=== PATIENT | female | born 1960 | race Caucasian/White ===

== ENCOUNTER 2017-03-26 21:19 | Inpatient (IN) | payer OTHER ==
[~2017-03-26 21:19] MED LIST: ISOVUE-370 76%-LOCM 1 ML ONE
--- NOTE | 2017-03-27 01:35 | PDOC.EVN ---
Event Note - Event Note Event Note: [id number] H&P Dictated 1. Dyspnea 2. Afib 3. H/O HTN 4. Acute bronchitis plan: see orders
[2017-03-27] MEDS ORDERED: Acetaminophen 325 MG TAB PO PRN (02:40)
[2017-03-27] MEDS ORDERED: Ondansetron HCl/PF 4 MG/2 ML Vial IVP PRN (02:40)
[2017-03-27] MEDS ORDERED: Ondansetron ODT 4 MG TAB SL PRN (02:40)
[2017-03-27] MEDS ORDERED: cefTRIAXone\\ROCEPHIN 1 GM, Syringe 0.4 ML in Sterile Water 9.6 ML SLOW IVP SCH ×2 (03:00→08:00)
[2017-03-27 03:10] VITALS: BMI 48.2
[2017-03-27] MEDS ORDERED: Aspirin 325 MG TAB PO SCH ×2 (03:15→08:00)
[2017-03-27] MEDS ORDERED: Azithromycin 500 MG in Sodium Chloride 0.9% 250 ML 250 ML IVPB SCH (04:00)
[2017-03-27] MEDS: Nitroglycerin 2% Ointment 1 INCH/1 GM Packet TOP SCH ×2 (04:53→11:46)
[2017-03-27 05:17] LABS: #Lymphocytes 0.6 thou/uL (1.20-3.40); #Neutrophils 3.8 thou/uL (1.40-6.50); %Basophils 0.5 % (0.0-1.0); %Eosinophils 0.1 % (0.0-10.0); %Monocytes 0.4 % (0.0-10.0); Mean Platelet Volume 6.7 fL (7.4-10.4); Red Blood Cell (RBC) Count 4.11 mill/uL (4.20-5.40); White Blood Cell (WBC) Count 4.4 thou/uL (4.8-10.8)
[2017-03-27 05:41] LABS: Troponin I Less than 0.010 ng/mL (< 0.028)
[2017-03-27 05:52] LABS: Anion Gap 14 mmol/L (10-20); BUN (Urea Nitrogen) 20 mg/dL (9.8-20.1); Calc. Creatinine Clearance 117 mL/min (70-130); Calcium 9.5 mg/dL (7.8-10.44); Carbon Dioxide 20 mmol/L (22-29); Chloride 105 mmol/L (98-107); Cholesterol 148 mg/dl (< 200 Desired); Estimated GFR-MDRD 51; LDL Cholesterol, Calculated 95 mg/dL
[2017-03-27] MEDS ORDERED: FLU VACC QS2017-18 36 mo. & older 0.5 ML SYRINGE IM ONE (09:00)
--- NOTE | 2017-03-27 11:23 | HP ---
DATE OF ADMISSION: 03/26/2017 CHIEF COMPLAINT: Dyspnea. HISTORY OF PRESENT ILLNESS: Patient is a 57-year-old female with past medical history of hypertensio n, atrial fibrillation, obstructive sleep apnea, . The patient started having dyspnea for past 2 weeks, dyspnea worse with ambulation. The patient also complains of cough for the last few days ac companied by chest tightness. Chest pain is substernal, mild in intensity. No guarding, no rebound. Denies any radiation. Denies any dizziness, denies any nausea, denies any vomiting, denies any lig htheadedness. PAST MEDICAL HISTORY: As per HPI. PAST SURGICAL HISTORY: Appendectomy, hysterectomy. SOCIAL HISTORY: Denies smoking, denies alcohol, denies any drugs. FAMILY HISTORY: Denies any heart problems. REVIEW OF SYSTEMS: Constitutional: Denies any fever, denies any chills. Eyes: Denies any vision p roblems. Ears: Denies any hearing loss. Neck: Denies any neck pain. Cardiovascular System: Posi tive for chest pain. Respiratory system: Denies any cough, denies sputum production. Cranial Nerve System: Denies syncope, denies lightheadedness. Psychiatric: Denies anxiety. Integument: Denies any rash. All other review of systems are reviewed and are negative. PHYSICAL EXAMINATION: CONSTITUTIONAL/VITAL SIGNS: At the time of H&P performed, blood pressure is 120/70, pulse ox 92% on 2 liters, afebrile, respiration rate is 18. GENERAL: The patient appears comfortable. HEENT: Pupils equal, round, and reactive. Anterior nares patent. Nose normal. Ears normal. Teeth intact. Tongue is moist. NECK: Supple. No JVD. CARDIOVASCULAR: S1, S2 present. Regular rate and rhythm. No murmurs, no rubs, no gallops. RESPIRATORY SYSTEM: No wheezing, no rhonchi. Breath sound present bilaterally. GASTROINTESTINAL: Abdomen is soft, nontender, no guarding, no organomegaly, no masses felt. MUSCULOSKELETAL: No edema. CRANIAL NERVE SYSTEM: Awake, follows commands. Speech clear. Strength intact. PSYCHIATRIC: Mood is appropriate at this time. INTEGUMENT: No rashes seen. LABORATORY DATA: At the time of H&P performed, white count 8.1, hemoglobin 12.2, platelet count is 2 41. Sodium 137, potassium 3.8, chloride 105, CO2 of 19, BUN of 24, creatinine 1.31. EKG, no acute S T wave changes. ASSESSMENT AND PLAN: The patient is a 57-year-old female, 1. Dyspnea, etiology unclear. EKG, no acute ST changes seen. We will consult cardiology. We will check cardiac enzymes. We will check 2D echo and we will follow patient. D-dimer is negative. We w ill check bilateral to rule out any deep venous prophylaxis also. 2. History of hypertension. Monitor blood pressure. Continue home blood pressure medications. 3. History of atrial fibrillation. Monitor heart rate. Continue home medications. 4. Obstructive sleep apnea. Continue CPAP. 5. Acute bronchitis. Plan to start patient on p.o. Zithromax also. Case was discussed in detail with the patient.
--- NOTE | 2017-03-27 11:54 | CT ---
PRELIMINARY REPORT/[facility]/EMERGENCY AFTER HOURS PROCEDURE: EXAM: CT Angiography Chest With Intravenous Contrast CLINICAL HISTORY: 57 years old, female; Signs and symptoms; Shortness of breath; Patient HX: 57 y/o f is tx from [facility] with presentation of SOB x1 week. Pt reports that she has worsening dyspnea with exertion/ambulation and states that she has had chest tightness secondary to SOB. Pt reports that her o2 sat went down t o 81% ra at pmd visit today and also reports developing cough. Denies any other complaints. No HX of asthma. Negative flu result today at pmd's visit. TECHNIQUE: Axial computed tomographic angiography images of the chest with intravenous contrast using pulmonary embolism protocol. All CT scans at this facility use one or more dose reduction techniques, viz.: aut omated exposure control; ma/kV adjustment per patient size (including targeted exams where dose is ma tched to indication; i.e. head); or iterative reconstruction technique. CONTRAST: 60 mL of [id number] administered intravenously. COMPARISON: No relevant prior studies available. FINDINGS: Pulmonary arteries: No pulmonary embolism. Main pulmonary artery is enlarged (40 mm at the level of t he pulmonary artery bifurcation), compatible with pulmonary arterial hypertension. No pulmonary embol ism. Aorta: Mild atherosclerotic disease of the thoracic aorta, without aneurysm or dissection. Lungs: 7 mm noncalcified nodule within the periphery of the lateral basal segment right lower lobe (s eries 2, image 75). Mild upper lobe predominant centrilobular emphysema. Pleural space: Normal. No significant effusion. No pneumothorax. Heart: Mild atherosclerotic disease of the left main and left anterior descending coronary arteries. Mediastinum: Small-sized hiatal hernia. Bones/joints: No acute fracture. No dislocation. Soft tissues: Normal. Lymph nodes: Normal. Spleen: Splenic calcification, compatible with prior granulomatous disease. IMPRESSION: 1. No pulmonary embolism. 2. Main pulmonary artery is enlarged (40 mm at the level of the pulmonary artery bifurcation), compat ible with pulmonary arterial hypertension. 3. 7 mm noncalcified nodule within the periphery of the lateral basal segment right lower lobe (serie s 2, image 75). For low-risk patients recommend follow-up chest CT at 6-12 months. If unchanged consi zurdo an additional follow-up CT at 18-24 months. For high-risk patients (smoking history or other know n risk factors) initial follow-up chest CT at 6-12 months and if unchanged, 18-24 months. 4. Incidental/non-acute findings are described above. Thank you for allowing us to participate in the care of your patient. Dictated and Authenticated by: Henrry Martínez MD 03/27/2017 1:13 AM Central Time ([place] & [place]) FINAL REPORT EMERGENCY AFTER HOURS CT ANGIOGRAM THORAX WITH IV CONTRAST AND 3D RECONSTRUCTIONS: Date: 03/27/17 HISTORY: Shortness of breath for 1 week, worsening dyspnea with exertion. Chest tightness secondary to the debra rtness of breath. IMPRESSION: 1. No CT evidence of pulmonary embolus. Mild enlargement of the main pulmonary arteries which may be related to an element of pulmonary artery hypertension. 2. Vascular calcifications in the coronary arteries, as well as thoracic aorta, but thoracic aorta i s normal in caliber without evidence of an aortic dissection. 3. Pleural based nodule along the minor fissure on the right measuring approximately 7.0 mm. This ma y represent area of nodular pleural thickening. However, there is a parenchymal pulmonary nodule at t he right lateral costophrenic angle which measures approximately 9.0 mm. There is also an additional subcentimeter pulmonary nodule along the major fissure right lung base which measures 6.0 mm, which a gain may be related to nodular pleural thickening. However, given the more discrete pulmonary nodule measuring 8.0 mm at the right lung base, follow-up CT scan thorax examination in 6 months is recomme nded. 4. Evidence of prior granulomatous disease. Findings are in agreement with the preliminary report by Kevin. POS: [facility]
[2017-03-27 12:00] VITALS: BP 125/57; TEMP 97.9
[2017-03-27] MEDS ORDERED: Dronedarone HCl 400 MG TAB PO SCH ×4 (12:00→21:00)
--- NOTE | 2017-03-27 12:16 | CON ---
DATE OF CONSULTATION: 03/27/2017 HISTORY OF PRESENT ILLNESS: The patient is a 57-year-old woman, who presents for evaluation of dyspnea. The patient has a previous history of atrial fibrillation. She has been on chronic antiarrhythmic therapy. The patient was in usual state of health until a week ago, she started having increasing dyspnea. She reports having congestion. The patient also had a low -grade fever. She denies having any productive sputum. Her dyspnea progressed and she came to the emergency room for further evaluation. The patient also reports having chest discomfort,which she states as primarily when she takes a deep breath. The patient has no previous history of chest discomfort. The patient' s cardiac risk factor is hypertension. PAST MEDICAL HISTORY: 1. Atrial fibrillation. 2. Hypertension. 3. Sleep apnea. 4. Morbid obesity. PAST SURGICAL HISTORY: Appendectomy. SOCIAL HISTORY: Former smoker. ALLERGY: ZYRTEC. MEDICATIONS ON ADMISSION: Multaq 100 b.i.d., diltiazem 120 daily, and lisinopril/ hydrochlorothiazide 20/12.5 daily. FAMILY HISTORY: Positive family history of heart disease. REVIEW OF SYSTEMS: Noticeable for 10-point system otherwise unremarkable. No history of bright red blood per rectum, bruising, or bleeding. PHYSICAL EXAMINATION: GENERAL: This is an obese woman in no acute distress. VITAL SIGNS: Blood pressure shows 122/57. NECK: Full. LUNGS: Clear to auscultation. HEART: Regular rate and rhythm, normal S1 and S2. ABDOMEN: Distended. EXTREMITIES: Showed no edema. NEUROLOGIC: Nonfocal. VASCULAR: Radial pulses are 2+. SOCIAL HISTORY: She is a former smoker. LABORATORY RESULT: Sodium 135, potassium 4.0, chloride 105, bicarbonate 20, BUN 20, creatinine 1.1, glucose 160, troponin less than 0.01. White blood cell count 4.4, hemoglobin 12.3, hematocrit 37.0, platelets are 253. EKG reveals her to have normal sinus rhythm with a low voltage QRS. IMPRESSION: 1. Dyspnea of unknown etiology. 2. History atrial fibrillation. 3. Hypertension. 4. Diabetes mellitus. 5. Morbid obesity. This patient presents with dyspnea of unclear etiology. Her BNP level is elevated. She has a normal D-dimer. Chest x-ray is unremarkable. We will check the patient's echocardiogram. We will follow this patient with you through her hospitalization. JULIA
[2017-03-27] MEDS ORDERED: guaiFENesin ER 600 MG TAB PO PRN ×2 (12:27→12:33)
[2017-03-27] MEDS ORDERED: Loratadine 10 MG TAB PO PRN ×2 (12:27→12:34)
[2017-03-27] MEDS ORDERED: Naproxen 500 MG TAB PO PRN ×2 (12:27→12:34)
--- NOTE | 2017-03-27 15:29 | DIS ---
DATE OF ADMISSION: 03/26/2017 DATE OF DISCHARGE: 03/27/2017 DISCHARGE DIAGNOSES: 1. Acute bronchitis with dyspnea. 2. Morbid obesity. 3. Seasonal allergies. 4. History of atrial fibrillation with current sinus mechanism. 5. Hypertension, labile. 6. Obstructive sleep apnea. CONSULTATIONS: Dr. Mode Garcia with Cardiology Service. PERTINENT LABORATORY DATA: Creatinine ranged between 1.11 to 1.31 with estimated GFR ranging between 42 to 51, total cholesterol 148, triglycerides 57, HDL 42, LDL 95. Troponin I negative x2. CBC wit hin normal limits. X-RAY FINDINGS: 1. Portable chest x-ray dated 03/26/2017 showed no acute cardiopulmonary process. CT angiogram of t he chest dated 03/26/2017 showed no evidence for pulmonary embolus. Granulomatous changes. 2. Pulmonary nodules. Recommend CT chest follow up in 6 months. A 2D transthoracic echocardiogram dated 03/27/2017 showed ejection fraction of 60% to 65%. Mild diastolic dysfunction. Mild pulmonary hypertension. HOSPITAL COURSE: The patient was admitted to the telemetry unit after initially presenting with dysp vasiliy of unclear etiology. The patient underwent general evaluation including metabolic survey. Telem etry monitoring, EKG, and chest imaging with essentially negative findings. The patient was noted wi th of pulmonary nodular changes consistent with granulomatous disease with recommendations for CT of the chest in 6 months. The patient was given general pulmonary supportive measures with Zithromax fo r suspected acute bronchitis with overall improvement in symptomatology. No specific evidence to sug gest a cardiac etiology for presentation and patient remained clinically stable throughout the hospit al course. Telemetry monitoring showed a sinus mechanism without evidence of acute arrhythmia or dys rhythmia or atrial fibrillation. The patient overall clinically stable and ready for discharge 03/27. DISCHARGE MEDICATIONS: 1. Zithromax 500 mg 1 tab p.o. daily x5 days. 2. Prednisone 10 mg p.o. b.i.d. x2 days, followed by 10 mg p.o. daily x2 days, followed by 5 mg p.o. daily x2 days. 3. Enteric coated aspirin 81 mg 1 tab p.o. daily. 4. Diltiazem ER 120 mg 1 tab p.o. daily. 5. Multaq 400 mg p.o. b.i.d. 6. Mucinex ER 600 mg p.o. b.i.d. 7. Lisinopril/hydrochlorothiazide 20/12.5 mg 1 tab p.o. daily. 8. Claritin 10 mg 1 tab p.o. daily. 9. Naproxen 500 mg p.o. b.i.d. p.r.n. FOLLOWUP: The patient will follow up with her primary care provider, Dr. Lawton within 7 days of di terryrdonald. CONDITION ON DISCHARGE: Stable. ACTIVITY: Ad john. DIET: Heart healthy. CODE STATUS: FULL. DISPOSITION: Home 03/27/2017.
[2017-03-28] MEDS ORDERED: Lisinopril/Hydrochlorothiazide 20 mg/12.5 mg Tablet PO SCH (09:00)
[2017-03-28] MEDS ORDERED: Non-Formulary Item 1 EACH (Lisinopril/Hydrochlorothiazide [Lisinopril-Hctz 20-12.5 Mg Tab PO SCH (09:00)
[2017-03-28] MEDS ORDERED: Aspirin 81 mg Enteric Coated Tablet PO SCH ×2 (09:00)
== END 2017-03-27 13:58 | disposition home or self-care (01) | DRG 202 ==
LOC: ERS 21:19 → T4-A 23:29 → 2SE 03-27 04:05
PROVIDERS: ADMIT Internal Medicine; ATTEND Internal Medicine
DX: J20.9 Acute bronchitis, unspecified (principal); Z68.42 Body mass index [BMI] 45.0-49.9, adult; I10 Essential (primary) hypertension; E66.01 Morbid (severe) obesity due to excess calories; G47.33 Obstructive sleep apnea (adult) (pediatric); J30.2 Other seasonal allergic rhinitis; Z23 Encounter for immunization; Z87.891 Personal history of nicotine dependence; I48.91 Unspecified atrial fibrillation
CPT/HCPCS: 36415; 71275; 80048; 80061; 84484; 85025; 90471; 90682; 93005; 93306; 94760; A4216; G0008; J0456; J0696; J7050; Q2036

== ENCOUNTER 2017-09-12 08:29 | Outpatient (CLI) | payer OTHER ==
--- NOTE | 2017-09-12 10:46 | RAD ---
PA AND LATERAL VIEWS CHEST: HISTORY: Dyspnea. FINDINGS: Comparison is made with the exam of 03/26/17. The heart is enlarged. The lungs are expanded without focal areas of consolidation, pneumothorax, goldie pulmonary edema, or pleural effusions. There are mild degenerative changes in the spine. IMPRESSION: No acute process. POS: [facility]
== END 2017-09-12 08:30 | disposition home or self-care (01) ==
LOC: RAD 08:29
PROVIDERS: ATTEND Internal Medicine Critical Care Medicine
DX: R06.00 Dyspnea, unspecified (principal)
CPT/HCPCS: 71046

== ENCOUNTER 2017-12-07 09:08 | Outpatient (CLI) | payer OTHER ==
--- NOTE | 2017-12-07 12:09 | MRI ---
MRI LUMBAR SPINE WITHOUT CONTRAST: HISTORY: Low back pain, radiating down both legs x3 years. COMPARISON: None. TECHNIQUE: Appropriate T1 marrow signal intensity of the lumbar vertebrae. There is intrinsic T1 and T2 hyperin tensity at L1, compatible with a small hemangioma. No significant spondylolisthesis. No definite sp ondylosis. Symmetric signal intensity of the psoas muscles. Right extrarenal pelvis is noted. Questionable lef t renal cortical cyst, incompletely evaluated. The conus medullaris terminates at the lower aspect of L1. T12-L1: Desiccation with mild loss of disk space height. There is a generalized disk bulge without significant central canal stenosis. The neural foramina are patent. L1-L2: Adequate disk hydration. No significant central canal stenosis or neural foraminal narrowing . L2-L3: Mild disk desiccation. Minimal generalized disk bulge without significant central canal sten osis. The neural foramina are patent bilaterally. L3-L4: Adequate disk hydration. No significant posterior disk abnormality. No significant central canal stenosis. The neural foramina are patent. L4-L5: Desiccation without significant loss of disk space height. There are posterior annular T2 an d STIR hyperintensities, suggesting a small annular fissure, without associated protrusion. Mild lig amentum flavum thickening and facet hypertrophy. No significant central canal stenosis. The right neural foramen is patent. Mild left foraminal narrowing. L5-S1: Adequate disk hydration. No significant central canal stenosis. The neural foramina are pat ent. IMPRESSION: 1. No significant central canal stenosis or foraminal narrowing. 2. Annular fissure at L4-L5. POS: [facility]
== END 2017-12-07 09:09 | disposition home or self-care (01) ==
LOC: SCSMRI 09:08
PROVIDERS: ATTEND Physical Medicine & Rehabilitation
DX: M54.5 Low back pain (principal); M79.606 Pain in leg, unspecified; Q05.7 Lumbar spina bifida without hydrocephalus
CPT/HCPCS: 72148

== ENCOUNTER 2018-04-25 18:13 | Inpatient (IN) | payer OTHER ==
--- NOTE | 2018-04-25 21:05 | PDOC.FPRHP ---
- History of Present Illness Chief Complaint: SOB History of Present Illness: Mrs. Pardo presents to the ED as a transfer for SOB She reports that for the last two weeks she has had increasing SOB with hypoxia noted by home pulse ox. This happens at rest and with exertion. She denies any chest pain, syncope, palpitations, or focal weakness during these episodes. She does report some mild allergy type symptoms including rhinorrhea and cough. She had a similar episode to this about a year ago at this time, she was given a zpack and oral steroid and followed up with Dr. Powell outpt, begun on an inhaled steroid and had complete resolution of symptoms after three months. she discontinued the inhaler at that time and has had no symptoms since. She follows up as scheduled with Dr. Gonzalez and Dr. Powell regularly and takes her medications as prescribed. ED Course: transfer from outside ED: azithro, asa, solumedrol ddimer, CBC, CMP, CXR, trop - Allergies/Adverse Reactions Allergies Allergy/AdvReac Type Severity Reaction Status Date / Time cetirizine [From [facility]] Allergy Short of Verified 03/27/17 02:49 Breath - Home Medications Medication Instructions Recorded Confirmed Type Dronedarone HCl [Multaq] 1 tab PO BID 05/15/14 04/26/18 History Diltiazem HCl [Diltiazem 12Hr ER] 120 mg PO DAILY 03/27/17 04/26/18 History Apixaban [Eliquis] 5 mg PO BID 04/26/18 04/26/18 History Fexofenadine HCl [Jimmy Allergy] 180 mg PO DAILY 04/26/18 04/26/18 History Furosemide 20 mg PO MWF 04/26/18 04/26/18 History Gabapentin 600 mg PO TID 04/26/18 04/26/18 History Lisinopril 5 mg PO DAILY 04/26/18 04/26/18 History - History PMHx:afib, htn, hld, MAURIZIO, obesity PSHx: appy, hysterectomy FHx: lung CA Social: 19 pack year smoking hist, quit ten years ago - Review of Systems General: denies: fever/chills, weight/appetite/sleep changes, night sweats, fatigue Eyes: denies: eye pain, vision changes ENT: reports: nasal congestion, rhinorrhea Respiratory: reports: cough, shortness of breath. denies: congestion, exercise intolerance Cardiovascular: denies: chest pain, palpitation, edema, paroxysmal nocturnal dyspnea, orthopnea Gastrointestinal: denies: nausea, vomiting, diarrhea, constipation Genitourinary: denies: incontinence, dysuria Skin: denies: rashes, lesions Musculoskeletal: denies: pain, tenderness Neurological: denies: numbness, syncope - Vital signs BP: 147/72 HR: 67 RR: 19 Tmax: 98.6 Pox: 92% on 4L Wt: 119kg - Physical Exam Constitutional: NAD, awake, alert and oriented HEENT: normocephalic and atraumatic, grossly normal vision, TM's clear and intact, grossly normal hearing, MMM, other (mallampatti class 4, erythematous nasal mucosa) Neck: supple, trachea midline Chest: no-tender to palpation, no lesions Heart: RRR, normal S1/S2, no murmurs/rubs/gallops Lungs: CTAB, no respiratory distress, good air movement, no rales/rhonchi, no wheezing Abdomen: soft, non-tender Musculoskeletal: normal structure, normal tone Neurological: no focal deficit, CN II-XII intact Skin: no rash/lesions, good turgor Heme/Lymphatic: no unusual bruising or bleeding Psychiatric: normal mood and affect FMR H&P: A/P - Problem List (1) Acute and chronic respiratory failure with hypoxia Current Visit: Yes Status: Acute Code(s): J96.21 - ACUTE AND CHRONIC RESPIRATORY FAILURE WITH HYPOXIA (2) HTN (hypertension) Current Visit: Yes Status: Acute Code(s): I10 - ESSENTIAL (PRIMARY) HYPERTENSION (3) HLD (hyperlipidemia) Current Visit: Yes Status: Acute Code(s): E78.5 - HYPERLIPIDEMIA, UNSPECIFIED (4) MAURIZIO (obstructive sleep apnea) Current Visit: Yes Status: Acute Code(s): G47.33 - OBSTRUCTIVE SLEEP APNEA ( ADULT) (PEDIATRIC) (5) Obesity Current Visit: Yes Status: Acute Code(s): E66.9 - OBESITY, UNSPECIFIED (6) Atrial fibrillation with RVR Current Visit: No Status: Acute Code(s): I48.91 - UNSPECIFIED ATRIAL FIBRILLATION - Plan Acute hypoxic respiratory failure - desaturation to 73% on RA, saturating well on 4L currently, s/p oral and neb. steroids in ED - continue oral steroids, duonebs q4hr prn - no WBC elevation, CXR not conerning for pna, will forgo abx at this time, procal pending - continuous O2 monitoring, maintain 92% - worked up by Dr. Powell outpatient, consider pulmonology consult and CT chest Afib with RVR - continue home medications - monitor on telemetry - TSH pending MAURIZIO - cocern for pulmonary artery hypertension - continue cpap at night HTN - continue home medications HLD - continue home medications Seasonal allergies - continue home medications - add flonase Code: full ppx: eliquis Disposition/LOS: admit to telemetry, possible DC in 1-2 days FMR H&P: Upper Level - Pertinent history 58 yr old female with PMH of paroxysmal a-fib, HTN, HLD, and allergies presents for shortness of breath. Patient reports exertional dyspnea for the last 2 weeks that acutely worsened today in a resting position and reports O2 sats in the 70's at her home. She reports an associated chest tightness when she gets really short of breath. Denies cough, fever. She went to urgent care yesterday and received amoxicillin for "fluid behind her ear." Approx 13 months ago she had a similar occurrence. Found to be hypoxemic without a cause- was treated for bronchitis with axithromycin and steroids. She states she was continued on an inhaled steroid, asmanex, by her marine engine driver, for about 3 months and has done really well for the last 8 months. She has some pulmonary nodules they were monitoring by annual CT scans. - Pertinent findings D-Dimer: 0.37 BNP 91 HGB 12.9 CXR: patchy densities of lower hemithoracies, enlargement of cardiac silhouette with bilateral vascular congestion Gen: No acute distress neck: no lymphadenopathy Heart: RRR, no murmurs, rubs, gallops Lungs: CTAB bilaterally without crackles, wheezes, or rhonchi Abd: BS+, non tender to palpation Ext: No edema - Plan Date/Time: 04/25/182101 I, [Crista Woodward], have evaluated this patient and agree with findings/plan as outlined by rn internal medicine resident. Pertinent changes/additions are listed here. 58 yr old female Acute hypoxic Respiratory failure -possibly 2/2 underlying pulmonary HTN vs lung disease/inflammation -PE r/o with neg d dimer, no anemia, BNP wnl -O2 on 4 lts and satting 92%, wean as tolerated -cont O2 as needed. -check procal but do not suspect PNA given x-ray and PE findings. -consider pulmonology consult in AM -consider addition of inhaled steroid in AM paroxysmal A-fib -cont home multaq, dilt, and eliquis -currently in sinus HTN -cont home lisinopril MAURIZIO -restart bipap at home settings seasonal allergies -cont jimmy PCP: Jered Code Status: Full Diet: HH DVT ppx: on eliquis GI ppx: none
[2018-04-25] MEDS ORDERED: Acetaminophen 325 MG TAB PO PRN ×2 (22:08→22:35)
[2018-04-25] MEDS ORDERED: Ondansetron ODT 4 MG TAB SL PRN (22:08)
[2018-04-25] MEDS ORDERED: Sodium Chloride 0.9% 1,000 ML IV SCH (22:08)
[2018-04-25] MEDS ORDERED: Ondansetron PF 4 MG/2 ML Vial IVP PRN (22:08)
[2018-04-25 23:45] VITALS: BMI 43.6
[2018-04-26] MEDS: Mometasone 100 MCG HFA INHALER INH SCH ×2 (07:57→18:45)
--- NOTE | 2018-04-26 08:29 | PDOC.FM ---
- Subjective Subjective: No acute events overnight. Did well on home CPAP. Feeling anxious about situation. - Objective MAR Reviewed: Yes Vital Signs & Weight: Vital Signs (12 hours) Temp Pulse Resp BP Pulse Ox 04/26/18 07:57 68 16 04/26/18 07:24 98.1 F 62 18 126/76 97 04/26/18 04:00 97.9 F 62 18 125/72 95 04/26/18 00:35 97.7 F 68 18 151/74 H 96 04/25/18 23:42 98.0 F 73 20 152/87 H 93 L 04/25/18 23:00 93 L 04/25/18 22:35 71 Weight Weight 119 kg Phys Exam - Physical Examination Constitutional: NAD large body habitus HEENT: PERRLA, moist MMs Neck: no nodes, full ROM Respiratory: no wheezing, no rales, no rhonchi, clear to auscultation bilateral Cardiovascular: RRR, no significant murmur Gastrointestinal: soft, non-tender Musculoskeletal: no edema, pulses present Neurological: non-focal, moves all 4 limbs Psychiatric: A&O x 3 Deviation from normal: anxious affect Dx/Plan (1) Acute and chronic respiratory failure with hypoxia Code(s): J96.21 - ACUTE AND CHRONIC RESPIRATORY FAILURE WITH HYPOXIA Status: Acute (2) HLD (hyperlipidemia) Code(s): E78.5 - HYPERLIPIDEMIA, UNSPECIFIED Status: Acute (3) HTN (hypertension) Code(s): I10 - ESSENTIAL (PRIMARY) HYPERTENSION Status: Acute (4) MAURIZIO (obstructive sleep apnea) Code(s): G47.33 - OBSTRUCTIVE SLEEP APNEA (ADULT) (PEDIATRIC) Status: Acute (5) Obesity Code(s): E66.9 - OBESITY, UNSPECIFIED Status: Acute (6) Atrial fibrillation with RVR Code(s): I48.91 - UNSPECIFIED ATRIAL FIBRILLATION Status: Acute - Plan Plan: 58 yo F with MAURIZIO on CPAP admitted for acute hypoxic respiratory failure Acute hypoxic respiratory failure - non-hypoxic on CPAP overnight, continue NC as tolerated - continue oral prednisone, asmanex, duonebs q4hr prn - continuous O2 monitoring, maintain 92% - pulm consult, recs appreciated - TTE results pending Afib with RVR - continue home medications - monitor on telemetry - TSH pending MAURIZIO - cocern for pulmonary artery hypertension - continue cpap at night HTN - continue home medications HLD - continue home medications Seasonal allergies - continue home medications Code: full dvt ppx: eliquis Dispo: stable. jassi youngblood, recs appreciated. Addendum - Attending - Attending Attestation Date/Time: 04/26/18 [id number] I personally evaluated the patient and discussed the management with Dr. Glynn I agree with the History, Examination, Assessment and Plan documented above with any addition or exceptions noted below - Patient without complaints. Still having SOB with ambulation none at rest. Afebrile VSS. A/P: 1) hypoxias- O2 desturates with ambulation or off O2; will have pulmonary see patient for assistance/recommendations. Echo ordered. 2) HTN well controlled; continue current meds.
[2018-04-26] MEDS: predniSONE 20 MG TAB PO SCH (08:31)
[2018-04-26] MEDS: Apixaban 5 MG TAB PO SCH ×2 (08:32→20:57)
[2018-04-26] MEDS: Lisinopril 5 MG TAB PO SCH (08:32)
[2018-04-26] MEDS: Dronedarone HCl 400 MG TAB PO SCH ×2 (08:34→20:57)
[2018-04-26] MEDS: Gabapentin 300 MG CAP PO SCH ×3 (08:34→20:58)
[2018-04-26] MEDS: Loratadine 10 MG TAB PO SCH (08:34)
[2018-04-26] MEDS ORDERED: Furosemide 20 MG TAB PO SCH (09:00)
[2018-04-26] MEDS ORDERED: Non-Formulary Item 1 EACH (Fexofenadine Hcl [Allegra Allergy] 180 MG) PO SCH (09:00)
[2018-04-26] MEDS ORDERED: Fluticasone Propionate Nasal Spray 16 gm Bottle NASAL SCH (09:00)
[2018-04-26] MEDS ORDERED: Furosemide 40 MG/4 ML VIAL SLOW IVP SCH (15:45)
[2018-04-26] MEDS: Montelukast Sodium 10 mg Tablet PO SCH (20:57)
[2018-04-26] MEDS: Atorvastatin Calcium 40 MG TAB PO SCH (20:57)
--- NOTE | 2018-04-26 23:47 | CON ---
DATE OF CONSULTATION: 04/26/2018 SERVICE: Pulmonary Medicine. REASON FOR CONSULTATION: Pulmonary hypertension. HISTORY OF PRESENT ILLNESS: The patient is a 58-year-old white female with past medical historysignificant for morbid obesity and obstructive sleep apnea. Last year, she was in the hospital because she had a progressive increasing shortness of breath for a period of 2 or 3 weeks. She was put in the hospital on antibiotics and steroids. Ultimately, she was discharged. She felt a lot better, but at her followup appointment, she still continued to have a little bit of difficulty with breathing when getting around. She is put on Asmanex inhaler. After about 2 or 3 weeks, her breathing improved dramatically. She took the one month of samples and subsequently returned to her usual breathing state. Over the last year, she successfully lost 30 pounds. She has been doing fantastic from a breathing standpoint up until about 3 weeks ago when she started having increasing dyspnea on exertion again. She denies having a cough, sputum production, fevers, chills, nausea, or vomiting. She is not waking up with sweats. She did not have any hot, red, swollen joints, arthralgia, or arthritides. Otherwise, she was in her usual state of health, but because of her severe dyspnea, she went to an Urgent Care Clinic. They gave her an Asmanex inhaler, but she was unable to get it filled. Ultimately, her dyspnea on exertion progressed and she went to emergency department, where she was discovered to have saturations in the 70s. She was subsequently put in the hospital on a little bit of oxygen. Overnight, her breathing has improved a little bit. She is getting some steroids. Imaging studies were consistent with a touch of volume overload. otherwise, she is returning to her usual state of health, but she still has marginal oxygen saturations. PAST MEDICAL HISTORY: 1. Obstructive sleep apnea, severe. 2. Chronic diastolic heart failure. 3. Atrial fibrillation. 4. Hypertension. 5. Dyslipidemia. 6. Morbid obesity. PAST SURGICAL HISTORY: 1. Appendectomy. 2. Hysterectomy. FAMILY HISTORY: Noncontributory. SOCIAL HISTORY: Negative for alcohol, tobacco, or illicit drug use currently. She is about a [id number] history of smoking, but quit over 10 years ago. She has no exposure to chemicals, dust, asbestos, or tuberculosis. She denies any significant alcohol use or ever using any street drugs. ALLERGIES: CETIRIZINE. MEDICATIONS: List of her inpatient medications was reviewed. Couple updates were made. I have added some Singulair and gave her a dose of Lasix. REVIEW OF SYSTEMS: General, head, ears, eyes, nose, throat, cardiovascular, respiratory, GI, , musculoskeletal, neurologic, and skin is negative except as mentioned is the HPI. PHYSICAL EXAMINATION: VITAL SIGNS: Afebrile, pulse 79, blood pressure 118/73, respirations 18, and saturation 96% on 2 L nasal cannula. GENERAL: The patient is awake and alert, in no apparent distress. LUNGS: Really quite good air entry. There is a slightly prolonged expiratory phase, but I really do not hear any wheezing or rhonchi. Crackles are present in the dependent regions with careful auscultation. HEART: Normal rate. Regular. ABDOMEN: Soft, nontender, and nondistended. Bowel sounds are positive. MUSCULOSKELETAL: No cyanosis or clubbing. There is no pitting in the bilateral lower extremities. NEUROLOGIC: Grossly nonfocal. LABORATORY DATA: CBC is completely unremarkable. Hemoglobin 12.9. INR 1.2. D-dimer is negative at 0.37. Basic metabolic profile and liver function studies are unremarkable. BNP 99, troponin is below assay limit. Procalcitonin 0.03. Lactate is 1.3. Blood cultures x2 remain unremarkable. IMAGING STUDIES: 1. Chest x-ray demonstrates findings consistent with prominent interstitial markings, Corina B lines, widened mediastinal region, pulmonary arteries are dilated. The heart seems to be enlarged. The lung volumes are slightly increased for her stature. I do not see any overt consolidating features present. This is a slightly under-penetrated film, however. 2. CTA of the chest previously demonstrated scattered ground-glass opacifications throughout bilateral lung gaines, likely representing areas of atelectasis. It is primarily located in the dependent portions. Interstitial markings are touch prominent. There is a very small ground-glass nodule measuring 4 to 5 mm in the right middle lobe. There are other ground-glass nodules located throughout the bilateral lung gaines. The pulmonary artery is dilated. There is minimal out of the right ventricle, but there is no reflux of contrast into the inferior vena cava. The left atrium is also dilated. The left ventricle is generous in size on the CT scan. All of these findings could be consistent with a touch of volume overload. 3. Echocardiogram from 2017 demonstrates diastolic dysfunction, elevated pulmonary artery pressures, and a normal ejection fraction with no significant valvular abnormalities. ASSESSMENT: 1. Acute hypoxic respiratory failure. 2. [id number] diastolic heart failure. 3. Allergic rhinitis. 4. Obstructive sleep apnea, severe. 5. Pulmonary hypertension, unlikely to represent pulmonary arterial disease and is likely secondary to left heart disease, and obstructive apneas. DISCUSSION AND PLAN: I believe the BNP is a false negative. She has some subtle features consistent with volume overload. We will get a TSH in the morning, and get an MICHELLE, and HIV to round out pulmonary arterial hypertension evaluation. In the outpatient setting, once her volume is optimized, V/Q scan, and pulmonary function studies can be considered. There is a possibility that she has some seasonal asthma. It seems to hit the same time each year. That being said, could be excessive salt intake with the recent holiday. Of note, people who are on CPAP or BiPAP typically do not have orthopnea or paroxysmal nocturnal dyspnea as the positive airway pressure prevents that. The previous CT scan of the chest was consistent with a touch of volume overload. She is already set up for a repeat CT scan in August of 2018, and she needs to follow up with Dr. Powell at that time, pulmonary Critical Care. I will add a dose of Singulair to see if this can help with her allergies. Pulmonary Critical Care will continue to follow while she remains in-house. Job ID: [id number]
[2018-04-27] MEDS: Mometasone 100 MCG HFA INHALER INH SCH ×2 (07:27→20:24)
[2018-04-27] MEDS: Loratadine 10 MG TAB PO SCH (08:23)
[2018-04-27] MEDS: Lisinopril 5 MG TAB PO SCH (08:23)
[2018-04-27] MEDS: Apixaban 5 MG TAB PO SCH ×2 (08:23→20:49)
[2018-04-27] MEDS: Gabapentin 300 MG CAP PO SCH ×3 (08:24→20:49)
[2018-04-27] MEDS: Dronedarone HCl 400 MG TAB PO SCH ×2 (08:24→20:49)
[2018-04-27] MEDS: predniSONE 20 MG TAB PO SCH (08:24)
[2018-04-27] MEDS ORDERED: Furosemide 40 MG/4 ML VIAL SLOW IVP SCH (09:00)
--- NOTE | 2018-04-27 09:05 | PDOC.FM ---
Addendum entered and electronically signed by Argelia Glynn MD 04/27/18 09:31 : Diastolic heart failure -continue lasix -strict I/o -fluid restricted diet Original Note: - Subjective Subjective: No acute events overnight. Denies SOB, chest tightness, wheezing. Feels better today. - Objective Vital Signs & Weight: Vital Signs (12 hours) Temp Pulse Resp BP BP Pulse Ox 04/27/18 08:24 62 129/78 04/27/18 08:23 62 129/78 04/27/18 07:44 97.8 F 60 19 129/78 93 L 04/27/18 07:27 57 L 16 94 L 04/27/18 04:00 97.4 F L 54 L 18 117/73 95 04/27/18 00:00 98.0 F 85 18 101/61 95 Weight Weight 119 kg I&O: 04/26/18 04/27/18 04/28/18 06:59 06:59 06:59 Intake Total 350 Balance 350 Phys Exam - Physical Examination Constitutional: NAD HEENT: moist MMs Respiratory: no wheezing, no rales, no rhonchi, clear to auscultation bilateral Cardiovascular: RRR, no significant murmur Neurological: non-focal, moves all 4 limbs Psychiatric: normal affect, A&O x 3 Dx/Plan (1) Acute and chronic respiratory failure with hypoxia Code(s): J96.21 - ACUTE AND CHRONIC RESPIRATORY FAILURE WITH HYPOXIA Status: Acute (2) HLD (hyperlipidemia) Code(s): E78.5 - HYPERLIPIDEMIA, UNSPECIFIED Status: Acute (3) HTN (hypertension) Code(s): I10 - ESSENTIAL (PRIMARY) HYPERTENSION Status: Acute (4) MAURIZIO (obstructive sleep apnea) Code(s): G47.33 - OBSTRUCTIVE SLEEP APNEA (ADULT) (PEDIATRIC) Status: Acute (5) Obesity Code(s): E66.9 - OBESITY, UNSPECIFIED Status: Acute (6) Atrial fibrillation with RVR Code(s): I48.91 - UNSPECIFIED ATRIAL FIBRILLATION Status: Acute - Plan Plan: 58 yo F with MAURIZIO on CPAP admitted for acute hypoxic respiratory failure Acute hypoxic respiratory failure - non-hypoxic on CPAP overnight. Non-hypoxic on RA at resting state - try weaning trial with exertion, see how tolerates - continue oral prednisone, asmanex, duonebs q4hr prn, singulair - continuous O2 monitoring, maintain 92% - TTE unrmk - Etiology possible due to severe seasonal allergy episode - Pending TSH, HIV, MICHELLE Afib with RVR - continue home medications - stable, no sxs MAURIZIO - continue cpap at night HTN - stable, continue home medications HLD - continue home medications Seasonal allergies - continue home medications Code: full dvt ppx: eliquis Dispo: stable. attempt o2 trial today to see how tolerates. May need to go home with intermittent O2 depending on needs. Discussed with Dr. William Addendum - Attending - Attending Attestation Date/Time: 04/27/18 [id number] I personally evaluated the patient and discussed the management with Dr. Glynn I agree with the History, Examination, Assessment and Plan documented above with any addition or exceptions noted below. Continue oxygen weaning trial feel some component patients symptoms related to Diastolic failure continue IV diuresis appreciate rec form Pulmonary Criticaal Care.
--- NOTE | 2018-04-27 18:31 | PRG ---
DATE OF SERVICE: 04/27/2018 SERVICE: Pulmonary Medicine. INTERVAL HISTORY: The patient is doing fine from respiratory standpoint. She is actually breathing better overnight compared to where she was about a month ago. She denies any current fevers or chills. There have been no overnight events. PHYSICAL EXAMINATION: VITAL SIGNS: Afebrile, pulse 68, blood pressure 109/73, respirations 18, saturation 91% on room air. GENERAL: The patient is awake and alert, in no apparent distress. LUNGS: Excellent air entry. There is no prolonged expiratory phase today. I do not hear any wheezing or rhonchi today. HEART: Normal rate, regular. ABDOMEN: Soft, nontender, and nondistended. Bowel sounds are positive. MUSCULOSKELETAL: No cyanosis or clubbing. There is no pitting in the bilateral lower extremities. NEUROLOGIC: Grossly nonfocal. LABORATORY DATA: Procalcitonin 0.03, TSH 2.86. D-dimer 0.37. IMAGING DATA: Echocardiogram demonstrates normal ejection fraction. Left atrium is enlarged. The right ventricular systolic pressure is not elevated on this evaluation. Of note, this was after a little bit of diuretics. ASSESSMENT: 1. Acute hypoxic respiratory failure, resolved. 2. Acute on chronic diastolic heart failure. 3. Allergic rhinitis. 4. Obstructive sleep apnea, severe. 5. Previous pulmonary hypertension, which was not reproduced on this study (prior study done in a volume overload state, current study performed after initiation of CPAP therapy and diuretics). DISCUSSION AND PLAN: The patient has had a very abrupt recovery. As such, we are most likely dealing with a volume mediated event despite the fact that the BNP was unremarkable. We can continue 5 days of steroids and switch her nebulized medications over to be used as needed. She can follow up with Dr. Powell in the outpatient setting. Antibiotics can be limited to 5 days. At this point, no additional studies are required looking into her pulmonary hypertension. We can consider sending her out with p.r.n. dose of Lasix. Pulmonary Critical Care will continue to follow if she remains in-house, but from my perspective, she is stable for transition home. Job ID: [id number]
--- NOTE | 2018-04-27 18:50 | EKG ---
Test Reason : Blood Pressure : / mmHG Vent. Rate : 070 BPM Atrial Rate : 070 BPM P-R Int : 180 ms QRS Dur : 076 ms QT Int : 410 ms P-R-T Axes : 046 000 036 degrees QTc Int : 442 ms Normal sinus rhythm Low voltage QRS Confirmed by QUINTON REDDY DO ([id number]), photo editor NEGRA CAMARILLO ([id number]) on 04/27/2018 6:49:28 PM Referred By: Confirmed By:QUINTON REDDY DO
[2018-04-27] MEDS: Atorvastatin Calcium 40 MG TAB PO SCH (20:49)
[2018-04-27] MEDS: Montelukast Sodium 10 mg Tablet PO SCH (20:57)
--- NOTE | 2018-04-28 05:38 | PDOC.FM ---
- Subjective Subjective: No acute events overnight. Tolerated walking test without needing O2. No SOB or dyspneic episodes - Objective MAR Reviewed: Yes Vital Signs & Weight: Vital Signs (12 hours) Temp Pulse Resp BP Pulse Ox 04/28/18 04:00 97.7 F 54 L 18 96/61 98 04/28/18 00:00 97.6 F 56 L 18 130/73 96 04/27/18 20:00 98.8 F 69 18 93/56 L 95 Weight Weight 119 kg I&O: 04/26/18 04/27/18 04/28/18 06:59 06:59 06:59 Intake Total 350 Balance 350 Phys Exam - Physical Examination Constitutional: NAD HEENT: PERRLA, moist MMs Respiratory: no wheezing, clear to auscultation bilateral Cardiovascular: RRR, no significant murmur Gastrointestinal: soft, non-tender Musculoskeletal: no edema, pulses present Neurological: non-focal, moves all 4 limbs Psychiatric: normal affect, A&O x 3 Dx/Plan (1) Acute and chronic respiratory failure with hypoxia Code(s): J96.21 - ACUTE AND CHRONIC RESPIRATORY FAILURE WITH HYPOXIA Status: Resolved (2) Diastolic heart failure with preserved ejection fraction Code(s): I50.30 - UNSPECIFIED DIASTOLIC (CONGESTIVE) HEART FAILURE Status: Chronic (3) HLD (hyperlipidemia) Code(s): E78.5 - HYPERLIPIDEMIA, UNSPECIFIED Status: Acute (4) HTN (hypertension) Code(s): I10 - ESSENTIAL (PRIMARY) HYPERTENSION Status: Acute (5) MAURIZIO (obstructive sleep apnea) Code(s): G47.33 - OBSTRUCTIVE SLEEP APNEA (ADULT) (PEDIATRIC) Status: Acute (6) Obesity Code(s): E66.9 - OBESITY, UNSPECIFIED Status: Acute (7) Atrial fibrillation with RVR Code(s): I48.91 - UNSPECIFIED ATRIAL FIBRILLATION Status: Acute - Plan Plan: 58 yo F with MAURIZIO on CPAP admitted for acute hypoxic respiratory failure Acute hypoxic respiratory failure, resolved - likely thought to be due to fluid overloaded states despite negative BNP - also possible allergic rhinitis component, improved with added singulair - patient has rapidly clinically improved with diuresis and supplemental O2 - non-hypoxic on RA today - pulmonology has signed off - continue oral prednisone, asmanex, duonebs q4hr prn, singulair Acute on chronic diastolic heart failure -Diuresing well, UO appropriate -continue daily lasix, daily weights, strict i/o -On lisinopril Afib with RVR - continue home medications - stable, no sxs MAURIZIO - continue cpap at night HTN - stable, continue home medications HLD - continue home medications Seasonal allergies - continue home medications Code: full dvt ppx: eliquis Dispo: stable. likely d/c to home today with ohme O2 PRN. Discussed with Dr. William Addendum - Attending - Attending Attestation Date/Time: 04/28/18 1212 I personally evaluated the patient and discussed the management with Dr. Glynn I agree with the History, Examination, Assessment and Plan documented above with any addition or exceptions noted below. Will D/c home with oxygen hopefully will not require termite exterminator.
[2018-04-28 07:10] LABS: HIV (1/2) Antibody/Antigen Non-Reactive (NonReactive); HIV 1/2 INDEX 0.08 S/CO (<1.00)
[2018-04-28] MEDS: Gabapentin 300 MG CAP PO SCH ×2 (08:42→16:03)
[2018-04-28] MEDS: Loratadine 10 MG TAB PO SCH (08:42)
[2018-04-28] MEDS: Dronedarone HCl 400 MG TAB PO SCH (08:42)
[2018-04-28] MEDS: predniSONE 20 MG TAB PO SCH (08:43)
[2018-04-28] MEDS: Lisinopril 5 MG TAB PO SCH (08:44)
[2018-04-28] MEDS: Apixaban 5 MG TAB PO SCH (08:44)
[2018-04-28] MEDS: Mometasone 100 MCG HFA INHALER INH SCH (10:52)
[2018-04-28 16:05] VITALS: BP 177/81; TEMP 97.4
[2018-04-29] MEDS ORDERED: Furosemide 40 MG TAB PO SCH (07:30)
--- NOTE | 2018-04-29 08:31 | DIS ---
DATE OF ADMISSION: 04/25/2018 DATE OF DISCHARGE: 04/28/2018 RESIDENT: Argelia Glynn, PGY-1. CONSULT: Pulmonology, Dr. Winter. PROCEDURES: None. PRIMARY DIAGNOSIS: Resolved acute hypoxic respiratory failure secondary to suspected heart failure exacerbation with possible seasonal allergy component. SECONDARY DIAGNOSES: 1. Paroxysmal atrial fibrillation. 2. Hypertension. 3. Hyperlipidemia. 4. Obstructive sleep apnea. 5. Obesity. 6. Chronic diastolic heart failure. DISCHARGE MEDICATIONS: 1. one tablet p.o. b.i.d. 2. Diltiazem 120 mg p.o. daily. 3. Eliquis 5 mg p.o. b.i.d. 4. Lisinopril 5 mg p.o. daily. 5. Gabapentin 300 mg p.o. t.i.d. 6. Lasix 20 mg p.o. Sunday, Sunday, Sunday. 7. Sapna Allergy 180 mg p.o. daily. 8. Atorvastatin 40 mg p.o. at bedtime. 9. Asmanex 2 puffs inhaled b.i.d. 10. Singulair 10 mg p.o. q.p.m. 11. Prednisone 40 mg p.o. q.a.m. with meal, 2 days. DISCONTINUED MEDICATIONS: None. HISTORY OF PRESENT ILLNESS AND HOSPITAL COURSE: Ms. Johnson is a 58-year-old female, who came into the ED with progressively worsening short of breath. She experienced a hypoxic episode with saturation of 78%. She did not require intubation; however, she felt much improved with DuoNeb and supplemental O2. She is not normally on home O2. She has a significant past medical history of MAURIZIO requiring CPAP in which she reports compliance. She also has a history of seasonal allergies in which she takes allergy medications. This has only happened one time prior about 7 years ago in which the same thing happened and she was hospitalized for it. She reports this episode feels the same. She has been worked up outpatient by Dr. Powell, armed security professional, who gave her a 3 month course of inhaled steroid, Asmanex, which she reported much improvement of symptoms after last hospitalization. She has been off this for the past 6 months. She does not identify any triggering factors such as increased fluid intake, recent respiratory illnesses. She was admitted and stabilized on supplemental O2. Pulmonology was consulted and an echo showed evidence of chronic diastolic heart failure, but no evidence of pulmonary artery hypertension, which there was concern for due to decompensation with no identified solution at that time. It was thought that her respiratory failure was caused by an acute on chronic diastolic heart failure. The patient reports taking Lasix on Sunday, Sunday, Sunday and has been compliant with this regimen. She was not able to be on it daily because of her renal function per patient as was instructed by the Cardiology PA that she sees regularly. The patient's respiratory status rapidly improved with Lasix and the addition of Singulair to her allergy medication regimen. It was also thought that there was an allergic component exacerbating the heart failure due to persistence of allergy like symptoms all year round. The patient was eventually able to be weaned off O2 on resting. She was tested on a walking test and experienced severe short of breath after walking several feet. She did not require O2, but was able to self treat with deep breaths. She was sent home with home O2 to use p.r.n. in case she experiences another hypoxic episode with instructions to use O2 to keep saturation above 92%. She was also instructed to start taking daily weight and should she experience a rapid increase in weight that may be a sign of fluid retention and to go ahead and take an additional Lasix dose. She was instructed to also continue the Singulair to control the allergy component. She is due for a CT to Dr. Pwoell was planning to do in August in order to monitor the mass that was found on last hospitalization in 2016. She plans to follow up with him and her PCP. DISPOSITION: Stable. DISCHARGE INSTRUCTIONS: 1. Location: Home. 2. Diet: Fluid restrict, low-salt diet. 3. Activity as tolerated. Please use supplemental O2 when indicated as discussed. 4. Followup: Please follow up with Dr. Powell and your PCP for continued care. Job ID: [id number] MTDD
[2018-05-01 14:23] LABS: ANA Symphony (Qualitative) Negative (Negative); ANA Symphony (Quantitative) Less than 0.1 Ratio (< 0.7 Negative); dsDNA IgG Antibody Less than 0.5 IU/mL (<10 Negative)
== END 2018-04-28 16:15 | disposition home or self-care (01) | DRG 291 ==
LOC: ERS 18:13 → T4-A 20:22
PROVIDERS: ADMIT Family Medicine; ATTEND Family Medicine
DX: I11.0 Hypertensive heart disease with heart failure (principal); J96.21 Acute and chronic respiratory failure with hypoxia; Z68.41 Body mass index [BMI] 40.0-44.9, adult; I50.33 Acute on chronic diastolic (congestive) heart failure; E78.5 Hyperlipidemia, unspecified; G47.33 Obstructive sleep apnea (adult) (pediatric); I48.91 Unspecified atrial fibrillation; E66.01 Morbid (severe) obesity due to excess calories; E78.00 Pure hypercholesterolemia, unspecified
CPT/HCPCS: 36415; 84145; 84443; 85379; 86038; 86225; 87389; 93005; 93306; 94664; J1940; J7506

== ENCOUNTER 2018-05-13 15:04 | Emergency (ER) | payer OTHER ==
[2018-05-13 16:09] LABS: Band 1 % (5-11); Eosinophils 2 % (0-10); Hemoglobin 13.5 g/dL (12.0-16.0); Lymphocytes 30 % (21-51); MDiff Complete? YES; Mean Corpuscular HGB CONC 33.7 g/dL (32.0-36.0); Mean Corpuscular Hemoglobin 29.5 pg (27.0-31.0); Mean Corpuscular Volume 87.5 fL (78.0-98.0); Mean Platelet Volume 7.7 fL (7.4-10.4); Monocytes 8 % (0-10); Neutrophil 47 % (42-75); Platelet Count 229 thou/uL (130-400); Platelet Morphology Comment Appears Adequate; RBC Distribution Width 12.5 % (11.5-14.5); Reactive Lymphocytes 12 % (0-10); Red Blood Cell (RBC) Count 4.57 mill/uL (4.20-5.40); White Blood Cell (WBC) Count 7.4 thou/uL (4.8-10.8)
--- NOTE | 2018-05-13 16:09 | RAD ---
FRONTAL VIEW CHEST: Date: 05/13/18 COMPARISON: 04/25/18. INDICATION: Chest pain. FINDINGS: There is no focal consolidation, effusion, or discrete pneumothorax. There is interstitial prominence bilaterally. Prominence of central pulmonary vasculature and cardiac silhouette noted. There is vasc ular calcification. IMPRESSION: Findings favor CHF. Correlate clinically. Imaging follow-up would be beneficial to confirm resolution . POS: [facility]
[2018-05-13 16:13] LABS: ALT (SGPT) 17 U/L (8-55); AST (SGOT) 15 U/L (5-34); Albumin 4.3 g/dL (3.5-5.0); Alkaline Phosphatase 95 U/L (40-150); Anion Gap 12 mmol/L (10-20); BUN (Urea Nitrogen) 20 mg/dL (9.8-20.1); Bilirubin, Total 0.7 mg/dL (0.2-1.2); Calc. Creatinine Clearance 0 mL/min (70-130); Calcium 9.4 mg/dL (7.8-10.44); Carbon Dioxide 26 mmol/L (22-29); Chloride 106 mmol/L (98-107); Estimated GFR-MDRD 46; Globulin 2.8 g/dL (2.4-3.5); Glucose 88 mg/dL (70-105); Lipase 55 U/L (8-78); Potassium 4.2 mmol/L (3.5-5.1); Protein, Total 7.1 g/dL (6.0-8.3); Sodium 140 mmol/L (136-145)
[2018-05-13 20:19] LABS: Troponin I Less than 0.010 ng/mL (< 0.028)
== END 2018-05-13 21:15 | disposition home or self-care (01) ==
LOC: SCSER 15:04
DX: R07.9 Chest pain, unspecified (principal); I48.91 Unspecified atrial fibrillation; E78.5 Hyperlipidemia, unspecified; I10 Essential (primary) hypertension; E66.9 Obesity, unspecified; G47.30 Sleep apnea, unspecified; Z87.891 Personal history of nicotine dependence; Z79.899 Other long term (current) drug therapy
CPT/HCPCS: 36415; 71045; 80053; 83690; 83880; 84484; 85025; 85379; 93005; 94760

== ENCOUNTER 2018-05-21 09:10 | Outpatient (CLI) | payer OTHER ==
--- NOTE | 2018-05-21 10:06 | RAD ---
PA AND LATERAL CHEST RADIOGRAPH: Date: 05-21-18 History: Dyspnea. Comparison: 09-12-17 as well as a portable chest radiograph on 05-13-18. FINDINGS: The cardiac silhouette and pulmonary vasculature are within normal limits. There is a faint nodular d ensity seen at the lateral aspect of the right lung base, also seen on the prior exam. There was a pu lmonary nodule on CTA thorax on 03-27-17. Lungs are otherwise clear. Cardiac silhouette and pulmonary vasculature are within normal limits. No other interval change. IMPRESSION: 1. Pulmonary nodule right lateral lung base. As recommended on prior CT exam, 6-month follow up from the date of that examination was recommended for further assessment. 2. No acute cardiopulmonary process. POS: [facility]
== END 2018-05-21 09:11 | disposition home or self-care (01) ==
LOC: RAD 09:10
PROVIDERS: ATTEND Internal Medicine Critical Care Medicine
DX: R06.00 Dyspnea, unspecified (principal); R91.1 Solitary pulmonary nodule
CPT/HCPCS: 71046

== ENCOUNTER 2018-06-12 12:14 | Outpatient (CLI) | payer OTHER | END 2018-06-12 12:15 | disposition home or self-care (01) | LOC: CP 12:14 | PROVIDERS: ATTEND Internal Medicine Critical Care Medicine | DX: J45.909 Unspecified asthma, uncomplicated (principal) | CPT/HCPCS: 94060; 94727; 94729 ==

== ENCOUNTER 2018-07-08 08:13 | Outpatient (CLI) | payer OTHER ==
--- NOTE | 2018-07-08 13:42 | MMO ---
Bilateral MAMMO Bilat Screen [facility]. CLINICAL HISTORY: Patient is 58 years old and is seen for screening. The patient has no family history of breast cancer. The patient has no personal history of cancer. VIEWS: The views performed were: bilateral craniocaudal with tomosynthesis and bilateral mediolateral oblique with tomosynthesis. MAMMOGRAM FINDINGS: There are scattered fibroglandular densities. There are no suspicious masses, calcifications or areas of architectural distortion. IMPRESSION: THERE IS NO MAMMOGRAPHIC EVIDENCE OF MALIGNANCY. A ROUTINE FOLLOW-UP MAMMOGRAM IN 1 YEAR IS RECOMMENDED. THE RESULTS OF THIS EXAM WERE SENT TO THE PATIENT. ACR BI-RADS Category 1 - Negative MAMMOGRAPHY NOTE: 1. A negative mammogram report should not delay a biopsy if a dominant of clinically suspicious mass is present. 2. Approximately 10% to 15% of breast cancers are not detected by mammography. 3. Adenosis and dense breasts may obscure an underlying neoplasm.
== END 2018-07-08 08:14 | disposition home or self-care (01) ==
LOC: BICMAMMO 08:13
PROVIDERS: ATTEND Family Medicine
DX: Z12.31 Encounter for screening mammogram for malignant neoplasm of breast (principal)
CPT/HCPCS: 77063; 77067

== ENCOUNTER 2018-07-16 15:14 | Outpatient (CLI) | payer OTHER ==
--- NOTE | 2018-07-16 16:19 | BD ---
BONE DENSITOMETRY USING DEXA: HISTORY: Postmenopausal screen for osteoporosis. Lumbar Spine: BMD (g/cm2) L1 0.969 T-Score: -0.2 Z-Score: 0.9 L2 0.955 T-Score: -0.7 Z-Score: 0.5 L3 0.910 T-Score: -1.6 Z-Score: 0.3 L4 0.886 T-Score: -1.6 Z-Score: -0.3 L1-L4 0.927 T-Score: -1.1 Z-Score: 0.1 Femoral Neck: 0.693 T-Score: -1.4 Z-Score: -0.2 Total Femur: 0.964 T-Score: 0.2 Z-Score: 1.0 The 10-year fracture risk for a major osteoporotic fracture is 6.1% and for a hip fracture is 0.4%. Impression: Osteopenia. POS: [facility]
== END 2018-07-16 15:15 | disposition home or self-care (01) ==
LOC: BICMAMMO 15:14
PROVIDERS: ATTEND Nurse Practitioner Adult Health
DX: E28.319 Asymptomatic premature menopause (principal); M85.89 Other specified disorders of bone density and structure, multiple sites
CPT/HCPCS: 77080

== ENCOUNTER 2018-09-03 09:53 | Outpatient (CLI) | payer OTHER ==
--- NOTE | 2018-09-03 10:26 | CT ---
CT Chest WO Con HISTORY: Pulmonary nodule noted on chest x-ray. COMPARISON: 05/21/2018 chest x-ray exam, also review is made of an 03/27/2017 CT study. FINDINGS: There are 2 pleural-based nodules within the right lung. One is along the major fissure and the second is along the minor fissure., These are seen on axial images 74 and 75 respectively. They measure in the 6 to 7 mm range and are stable. A third nodule within the right lower lobe, axial image 111 is also noted. It is in the right costoph renic angle region and measures 8 to 9 mm in size and is also stable. In addition on axial image 78 there is a pleural-based nodule within the right lower lobe, it measure s in the 5 to 6 mm range it is much more difficult to visualize on the previous exam but in retrospect is present and felt to be stable. There is no significant mediastinal or hilar adenopathy. There are moderate coronary artery calcifica tions present. Visualized liver parenchyma as it shows no focal findings. There is some increased attenuation within the gallbladder possibly sludge or small stones. IMPRESSION: 1. Stable appearance to multiple pulmonary nodules as described above. 2. Gallbladder sludge versus small stones. 3. Moderate coronary artery calcification.
== END 2018-09-03 09:54 | disposition home or self-care (01) ==
LOC: BICCT 09:53
PROVIDERS: ATTEND Internal Medicine Critical Care Medicine
DX: R91.1 Solitary pulmonary nodule (principal); I25.10 Atherosclerotic heart disease of native coronary artery without angina pectoris; R91.8 Other nonspecific abnormal finding of lung field
CPT/HCPCS: 71250

== ENCOUNTER 2018-10-21 08:01 | Outpatient (CLI) | payer OTHER ==
--- NOTE | 2018-10-21 08:15 | RAD ---
EXAM: Two views chest PROVIDED CLINICAL HISTORY: Dyspnea COMPARISON: 05/21/2018 FINDINGS: Cardiac silhouette and pulmonary vasculature are within normal limits. Previously described small pu lmonary nodule lateral right lung base is again seen. No consolidation or pleural fluid is identified. Chest is otherwise stable from prior study. IMPRESSION: 1. Stable pulmonary nodule lateral right lung base. 2. No acute cardiopulmonary process..
== END 2018-10-21 08:02 | disposition home or self-care (01) ==
LOC: RAD 08:01
PROVIDERS: ATTEND Internal Medicine Critical Care Medicine
DX: R06.00 Dyspnea, unspecified (principal); R91.1 Solitary pulmonary nodule
CPT/HCPCS: 71046

== ENCOUNTER 2018-12-12 14:57 | Outpatient (CLI) | payer OTHER ==
--- NOTE | 2018-12-12 16:26 | RAD ---
Exam: 4 views lumbar spine HISTORY: Lumbar radiculopathy. Chronic back pain FINDINGS: 5 lumbar type vertebral. Lumbar spine vertebral body height is maintained. No fracture. Mil d osteophyte formation, without significant loss of disc space height. Atherosclerosis of a nonaneurysmal aorta Spondylolisthesis: L4-L5: 3.9 mm neutral, 3.7 mm flexion, 2.8 mm extension Mild loss of disc space height and osteophyte formation at the T12-L1 level. IMPRESSION: 1. Grade 1 anterolisthesis of L4 upon.
--- NOTE | 2018-12-12 16:57 | MRI ---
MRI Lumbar Spine WO Con History: Lumbar spine stenosis. Right lower extremity numbness. Comparison: Lumbar spine radiograph same day Findings: Mild fullness of the right renal pelvis. Cysts left kidney. The aortic contour is nonaneurysmal. No retroperitoneal periaortic adenopathy. No marrow infiltrative process. Adventitial bursa of the L3-4 spinous processes. Levels are as follows: L1-2: Mild degenerative disc space height loss with circumferential disc osteophyte complex. Mild fac et arthropathy. No neural foraminal or spinal canal narrowing. L2-3: Mild degenerative disc space height loss and circumferential disc bulge. Moderate facet arthrop athy. Mild bilateral neural foraminal narrowing. Minimal effacement of ventral CSF space with the spinal canal measuring over 1 cm. L3-4: Mild degenerative disc space height loss posteriorly with small bilateral subsequent foraminal disc osteophyte complexes. Moderate facet arthropathy. Mild bilateral neural foraminal narrowing. L4-5: Mild degenerative disc space height loss. Mild disc desiccation. Central posterior annular fiss ure. Small bilateral subfrontal disc osteophyte complexes. Moderate hypertrophic facet arthropathy. Moderate bilateral neural foraminal narrowing. 2-3 mm retrolisthesis. L5-S1: Severe left facet arthropathy. Mild degenerative disc space height loss. No significant neural foraminal or spinal canal narrowing. Impression: Dijk-ga-kaunrdij spondylosis as described.
== END 2018-12-12 14:58 | disposition home or self-care (01) ==
LOC: SCSMRI 14:57
PROVIDERS: ATTEND Physical Medicine & Rehabilitation
DX: M47.26 Other spondylosis with radiculopathy, lumbar region (principal); M54.5 Low back pain; M48.07 Spinal stenosis, lumbosacral region; M43.16 Spondylolisthesis, lumbar region
CPT/HCPCS: 72100; 72148

== ENCOUNTER 2019-02-18 10:23 | Outpatient (CLI) | payer OTHER ==
--- NOTE | 2019-02-18 11:12 | RAD ---
EXAM: Chest 2 views: HISTORY: Dyspnea COMPARISON: 10/21/2018 FINDINGS: There is an enlarged but stable cardiomediastinal silhouette. There is no evidence of consolidation, mass, or pleural effusion. The bones are unremarkable. IMPRESSION: No evidence of acute cardiopulmonary disease
== END 2019-02-18 10:24 | disposition home or self-care (01) ==
LOC: RAD 10:23
PROVIDERS: ATTEND Internal Medicine Critical Care Medicine
DX: R06.00 Dyspnea, unspecified (principal)
CPT/HCPCS: 71046

== ENCOUNTER 2019-06-26 09:49 | Outpatient (CLI) | payer OTHER ==
--- NOTE | 2019-06-26 10:14 | RAD ---
XR Chest Pa Lat @ [facility] History: Dyspnea Comparison: Radiograph 2019 Findings: Heart size mildly enlarged. Increased pericardial fat pad bilaterally. Pulmonary arteries are mildly dilated. No pneumothorax. No effusion. Impression: No acute intrathoracic abnormality.
== END 2019-06-26 09:50 | disposition home or self-care (01) ==
LOC: RAD 09:49
PROVIDERS: ATTEND Internal Medicine Critical Care Medicine
DX: R06.00 Dyspnea, unspecified (principal)
CPT/HCPCS: 71046

== ENCOUNTER 2020-03-30 06:09 | Day surgery (SDC) | payer BC ==
[2020-03-29 12:40] VITALS: BMI 48.2
[2020-03-30] MEDS ORDERED: Nitroglycerin 2% Ointment 1 INCH/1 GM Packet ONE (08:20)
[2020-03-30] MEDS ORDERED: Nitroglycerin 4.9 GM Bottle ONE (08:20)
[2020-03-30] MEDS ORDERED: Iopamidol 370 76% 100 ML VIAL ONE (09:16)
== END 2020-03-30 15:00 | disposition home or self-care (01) ==
LOC: CCL 06:09
PROVIDERS: ATTEND Internal Medicine Cardiovascular Disease
PROC: B2111ZZ Fluoroscopy of Multiple Coronary Arteries using Low Osmolar Contrast (ICD-10-PCS; principal; 2020-03-30)
PROC: 4A023N8 Measurement of Cardiac Sampling and Pressure, Bilateral, Percutaneous Approach (ICD-10-PCS; principal; 2020-03-30)
DX: I25.10 Atherosclerotic heart disease of native coronary artery without angina pectoris (principal); I27.20 Pulmonary hypertension, unspecified; E78.00 Pure hypercholesterolemia, unspecified; I11.0 Hypertensive heart disease with heart failure; I50.32 Chronic diastolic (congestive) heart failure; E66.9 Obesity, unspecified; G47.33 Obstructive sleep apnea (adult) (pediatric); I48.91 Unspecified atrial fibrillation; Z68.42 Body mass index [BMI] 45.0-49.9, adult; Z79.01 Long term (current) use of anticoagulants; Z79.899 Other long term (current) drug therapy; Z88.8 Allergy status to other drugs, medicaments and biological substances
CPT/HCPCS: 76942; 93460; J1644; Q9967

== ENCOUNTER 2020-09-03 17:19 | Emergency (ER) | payer BC | END 2020-09-03 18:56 | disposition home or self-care (01) | LOC: ERS 17:19 | DX: S00.83XA Contusion of other part of head, initial encounter (principal); R06.82 Tachypnea, not elsewhere classified; I48.91 Unspecified atrial fibrillation; E78.5 Hyperlipidemia, unspecified; E78.00 Pure hypercholesterolemia, unspecified; I10 Essential (primary) hypertension; E66.9 Obesity, unspecified; G47.30 Sleep apnea, unspecified; Z79.899 Other long term (current) drug therapy; Z79.01 Long term (current) use of anticoagulants; Z87.891 Personal history of nicotine dependence; W18.30XA Fall on same level, unspecified, initial encounter | CPT/HCPCS: 70450; 70486; 93005 ==

== ENCOUNTER 2020-11-18 09:09 | Outpatient (CLI) | payer BC | END 2020-11-18 09:10 | disposition home or self-care (01) | LOC: BICRAD 09:09 | PROVIDERS: ATTEND Internal Medicine Critical Care Medicine | DX: R06.00 Dyspnea, unspecified (principal) | CPT/HCPCS: 71046 ==

== ENCOUNTER 2022-06-02 15:01 | Outpatient (CLI) | payer BC ==
[2020-03-26 14:06] LABS: #Basophils 0.1 10x3/uL (0.0-0.2); #Monocytes 0.3 10x3/uL (0.0-1.1); #Neutrophils 13.5 10x3/uL (1.5-8.4); %Basophils 0.3 % (0.0-2.0); %Eosinophils 0.1 % (0.0-6.0); %Lymphocytes 7.7 % (18.0-47.0); %Monocytes 1.7 % (0.0-10.0); %Neutrophils 89.6 % (40.0-75.0); Mean Corpuscular HGB CONC 32.3 G/DL (32.0-36.0); Mean Corpuscular Hemoglobin 29.6 PG (27.0-33.0); Mean Corpuscular Volume 91.8 fl (80.0-100.0); Mean Platelet Volume 10.3 fl (7.4-10.4); Platelet Count 267 10x3/uL (130-400); RBC Distribution Width 13.8 % (11.5-14.5); Red Blood Cell (RBC) Count 4.73 10x6/uL (3.90-5.20); White Blood Cell (WBC) Count 15.1 10x3/uL (4.5-11.0)
[2020-03-26 14:48] LABS: ALT (SGPT) 17 U/L (8-55); AST (SGOT) 18 U/L (5-34); Albumin 4.4 g/dL (3.5-5.0); Alkaline Phosphatase 79 U/L (40-110); Anion Gap 20 mmol/L (10-20); BUN (Urea Nitrogen) 18 mg/dL (9.8-20.1); Calc. Creatinine Clearance 0 mL/min (70-130); Calcium 8.9 mg/dL (7.8-10.44); Carbon Dioxide 15 mmol/L (22-29); Chloride 105 mmol/L (98-107); Globulin 2.7 g/dL (2.4-3.5); Glucose 167 mg/dL (70-105); Potassium 4.9 mmol/L (3.5-5.1); Protein, Total 7.1 g/dL (6.0-8.3); Sodium 135 mmol/L (136-145)
[2020-03-27 16:11] LABS: SARS-CoV-2 MS2 Positive; SARS-CoV-2 N Gene Negative; SARS-CoV-2 S Gene Negative; SARS-CoV-2 by NAA Not Detected (NotDetected); SARS-CoV-2 orf1ab Negative
[2022-06-02 16:32] LABS: #Basophils 0.1 10x3/uL (0.0-0.2); #Eosinphils 0.1 10x3/uL (0.0-0.5); #Monocytes 0.6 10x3/uL (0.0-1.1); #Neutrophils 5.4 10x3/uL (1.5-8.4); %Basophils 0.9 % (0.0-2.0); %Eosinophils 1.6 % (0.0-6.0); %Lymphocytes 18.1 % (18.0-47.0); %Monocytes 8.1 % (0.0-10.0); %Neutrophils 70.9 % (40.0-75.0); Hemoglobin 13.8 g/dL (12.0-15.5); Mean Corpuscular HGB CONC 32.4 g/dL (32.0-36.0); Mean Corpuscular Hemoglobin 28.5 pg (27.0-33.0); Mean Corpuscular Volume 87.8 fl (81.6-98.3); Platelet Count 255 10x3/uL (150-450); RBC Distribution Width 13.9 % (11.5-14.5); Red Blood Cell (RBC) Count 4.85 10x6/uL (3.90-5.03); White Blood Cell (WBC) Count 7.6 10x3/uL (3.5-10.5)
[2022-06-02 16:50] LABS: Anion Gap 15 mmol/L (10-20); BUN (Urea Nitrogen) 20 mg/dL (9.8-20.1); Calc. Creatinine Clearance 0 mL/min (70-130); Calcium 8.9 mg/dL (7.8-10.44); Carbon Dioxide 22 mmol/L (23-31); Chloride 107 mmol/L (98-107); Estimated GFR 40; Glucose 105 mg/dL (80-115); Potassium 4.1 mmol/L (3.5-5.1); Sodium 140 mmol/L (136-145)
== END 2022-06-02 15:02 ==
LOC: LABBT 15:01
PROVIDERS: ATTEND Orthopaedic Surgery Hand Surgery
DX: Z01.818 Encounter for other preprocedural examination (principal); M65.331 Trigger finger, right middle finger
CPT/HCPCS: 80048; 80053; 85025; 93005; 93010; U0003

== ENCOUNTER 2022-06-06 10:03 | Day surgery (SDC) | payer BC ==
[2022-06-02 10:28] VITALS: BMI 42.2
[2022-06-06] MEDS ORDERED: Bupivacaine PF 0.5% 30 ML VIAL ONE (11:54)
[2022-06-06] MEDS ORDERED: Betamet Acet/Betamet Na Ph 30 MG/5 ML VIAL ONE (11:54)
[2022-06-06] MEDS ORDERED: Neomycin-Polymyxin 1 ML AMP ONE (11:55)
[2022-06-06] MEDS ORDERED: Bacitracin Zinc Ointment 30 gm TUBE ONE (11:55)
[2022-06-06] MEDS ORDERED: Sodium Chloride 0.9% 100 ML ONE (13:32)
[2022-06-06] MEDS ORDERED: CEFAZOLIN 2 GM VIAL ONE (13:32)
[2022-06-06] MEDS ORDERED: Ketamine 50 MG/ML (10ML VIAL) ONE (13:38)
[2022-06-06] MEDS ORDERED: Midazolam HCl 2 mg/2 ml Vial ONE (13:38)
[2022-06-06] MEDS ORDERED: Propofol 500 MG/50 ML VIAL ONE (13:38)
[2022-06-06] MEDS ORDERED: Ketorolac Tromethamine 30 MG/ML VIAL ONE (15:21)
== END 2022-06-06 16:07 | disposition home or self-care (01) ==
LOC: SDC 10:03
PROVIDERS: ATTEND Orthopaedic Surgery Hand Surgery
PROC: 0LB70ZZ Excision of Right Hand Tendon, Open Approach (ICD-10-PCS; principal; 2022-06-06)
PROC: 0LN70ZZ Release Right Hand Tendon, Open Approach (ICD-10-PCS; principal; 2022-06-06)
DX: M65.841 Other synovitis and tenosynovitis, right hand (principal); M65.331 Trigger finger, right middle finger; I48.91 Unspecified atrial fibrillation; I10 Essential (primary) hypertension; E78.00 Pure hypercholesterolemia, unspecified; G47.30 Sleep apnea, unspecified; Z87.891 Personal history of nicotine dependence; Z79.82 Long term (current) use of aspirin; Z79.899 Other long term (current) drug therapy
CPT/HCPCS: 88304; J0702; J1885; J2250; J2704; J3490; S0020

== ENCOUNTER 2023-03-08 16:05 | Inpatient (IN) | payer BC ==
[2023-03-08] MEDS ORDERED: NOREPINEPHRINE 8 MG/250 ML-D5W 250 ML ONE (16:18)
[2023-03-08] MEDS ORDERED: EPINEPHrine 1 MG/10 ML Abboject SYRINGE ONE (16:18)
[2023-03-08 16:53] LABS: #Basophils 0.1 thou/uL (0.0-0.2); #Eosinphils 0.1 thou/uL (0.0-0.7); #Monocytes 0.5 thou/uL (0.11-0.59); #Neutrophils 6.1 thou/uL (1.40-6.50); %Basophils 0.6 % (0.0-1.0); %Eosinophils 0.9 % (0.0-10.0); %Lymphocytes 15.8 % (21.0-51.0); %Monocytes 5.7 % (0.0-10.0); %Neutrophils 76.3 % (42.0-75.0); Hematocrit 46.7 % (36.0-47.0); Hemoglobin 14.2 g/dL (12.0-16.0); Mean Corpuscular HGB CONC 30.4 g/dL (32.0-36.0); Mean Corpuscular Hemoglobin 26.4 pg (27.0-31.0); Mean Platelet Volume 9.2 fL (7.4-10.4); Platelet Count 202 10x3/uL (130-400); RBC Distribution Width 17.2 % (11.5-14.5); Red Blood Cell (RBC) Count 5.37 mill/uL (4.20-5.40)
[2023-03-08 17:20] LABS: Troponin I 0.048 ng/mL (< 0.028)
[2023-03-08 17:24] LABS: ALT (SGPT) 35 U/L (8-55); AST (SGOT) 90 U/L (5-34); Albumin 4.8 g/dL (3.4-4.8); Alkaline Phosphatase 215 U/L (40-110); Anion Gap 20 mmol/L (10-20); BUN (Urea Nitrogen) 16 mg/dL (9.8-20.1); Bilirubin, Total 1.2 mg/dL (0.2-1.2); Calc. Creatinine Clearance 0 mL/min (70-130); Calcium 8.6 mg/dL (7.8-10.44); Carbon Dioxide 14 mmol/L (23-31); Chloride 105 mmol/L (98-107); Estimated GFR 27; Globulin 2.3 g/dL (2.4-3.5); Glucose 111 mg/dL (80-115); Potassium 4.1 mmol/L (3.5-5.1); Protein, Total 7.1 g/dL (5.8-8.1); Sodium 135 mmol/L (136-145)
[2023-03-08] MEDS ORDERED: Furosemide 40 MG/4 ML VIAL ONE (18:25)
[2023-03-08] MEDS ORDERED: Ondansetron PF 4 MG/2 ML Vial IVP PRN (20:33)
[2023-03-08] MEDS ORDERED: Acetaminophen 325 MG TAB PO PRN (20:33)
[2023-03-08 21:08] LABS: INR-International Normal Ratio 1.2; Prothrombin Time 15.8 sec (12.0-14.7)
[2023-03-08 21:09] LABS: PTT 29.3 sec (22.9-36.1)
[2023-03-08 21:26] LABS: Troponin I 0.132 ng/mL (< 0.028)
[2023-03-08] MEDS ORDERED: Electrolyte Replacement Protocol 1 EACH FS SCH (21:31)
[2023-03-08] MEDS ORDERED: NOREPINEPHRINE 8 MG/250 ML-D5W 250 ML IVPB SCH (21:45)
[2023-03-08] MEDS ORDERED: Furosemide 40 MG/4 ML VIAL SLOW IVP SCH (22:45)
[2023-03-08 23:15] LABS: Troponin I 0.148 ng/mL (< 0.028)
[2023-03-08 23:27] VITALS: BMI 42.0
[2023-03-08] MEDS ORDERED: Albuterol 200 PUFF (6.7GM INHALER) INH PRN (23:43)
[2023-03-08] MEDS ORDERED: Dronedarone HCl 400 MG TAB PO SCH (23:59)
[2023-03-09] MEDS ORDERED: DOBUTamine 500 mg/250 ml 250 ML IVPB SCH (00:15)
[2023-03-09] MEDS ORDERED: Enoxaparin 120 MG/0.8 ML SYRINGE SC SCH (01:45)
[2023-03-09 02:09] VITALS: BP 97/58
[2023-03-09 04:40] VITALS: TEMP 98
[2023-03-09 06:01] LABS: ALT (SGPT) 24 U/L (8-55); AST (SGOT) 40 U/L (5-34); Albumin 3.6 g/dL (3.4-4.8); Alkaline Phosphatase 146 U/L (40-110); Anion Gap 16 mmol/L (10-20); BUN (Urea Nitrogen) 15 mg/dL (9.8-20.1); Bilirubin, Total 0.7 mg/dL (0.2-1.2); Calc. Creatinine Clearance 53 mL/min (70-130); Calcium 7.8 mg/dL (7.8-10.44); Carbon Dioxide 20 mmol/L (23-31); Chloride 106 mmol/L (98-107); Estimated GFR 29; Glucose 74 mg/dL (80-115); Potassium 3.6 mmol/L (3.5-5.1); Protein, Total 5.6 g/dL (5.8-8.1); Sodium 138 mmol/L (136-145)
[2023-03-09] MEDS ORDERED: Dronedarone HCl 400 MG TAB PO SCH (09:00)
[2023-03-09] MEDS ORDERED: Tadalafil [Tadalafil] 20 MG Tablet PO SCH (09:00)
[2023-03-09] MEDS ORDERED: Pantoprazole 40 MG VIAL IVP SCH (09:00)
[2023-03-12] MEDS ORDERED: FLU VACC QS2023-24(6MOS UP)/PF 60 MCG/0.5 ML SYRINGE IM ONE (09:00)
== END 2023-03-09 05:55 | disposition short-term general hospital (02) | DRG 314 ==
LOC: ERS 16:05 → CCU 19:42
PROVIDERS: ADMIT Family Medicine; ATTEND Family Medicine
PROC: 3E033XZ Introduction of Vasopressor into Peripheral Vein, Percutaneous Approach (ICD-10-PCS; principal; 2023-03-08)
PROC: 5A09357 Assistance with Respiratory Ventilation, Less than 24 Consecutive Hours, Continuous Positive Airway Pressure (ICD-10-PCS; 2023-03-09)
DX: I27.20 Pulmonary hypertension, unspecified (principal); J96.21 Acute and chronic respiratory failure with hypoxia; J96.22 Acute and chronic respiratory failure with hypercapnia; I47.10 Supraventricular tachycardia, unspecified; N17.9 Acute kidney failure, unspecified; N18.4 Chronic kidney disease, stage 4 (severe); I48.91 Unspecified atrial fibrillation; J45.909 Unspecified asthma, uncomplicated; I95.9 Hypotension, unspecified; R77.8 Other specified abnormalities of plasma proteins; I11.0 Hypertensive heart disease with heart failure; I50.9 Heart failure, unspecified; G47.30 Sleep apnea, unspecified; Z90.710 Acquired absence of both cervix and uterus; Z99.2 Dependence on renal dialysis; Z79.899 Other long term (current) drug therapy; Z98.890 Other specified postprocedural states; Z90.49 Acquired absence of other specified parts of digestive tract; Z87.891 Personal history of nicotine dependence
CPT/HCPCS: 36415; 71045; 80053; 83880; 84484; 85025; 85610; 85730; 93005; 93970; 94760; J0171; J1250; J1650; J1940

== ENCOUNTER 2023-03-09 06:31 | Emergency (ER) | payer BC | END 2023-03-09 10:20 | disposition short-term general hospital (02) | LOC: ERS 06:31 | DX: I27.20 Pulmonary hypertension, unspecified (principal); I95.9 Hypotension, unspecified; I48.91 Unspecified atrial fibrillation; E78.00 Pure hypercholesterolemia, unspecified; I10 Essential (primary) hypertension; Z87.891 Personal history of nicotine dependence; Z79.899 Other long term (current) drug therapy | CPT/HCPCS: 99285 ==